=== PATIENT | female | born 1955 | race Hispanic/Latino ===

== ENCOUNTER 2016-08-04 10:44 | Outpatient (CLI) | payer OTHER ==
--- NOTE | 2016-08-05 16:56 | Mammography Report ---
BILATERAL DIGITAL SCREENING MAMMOGRAM with CAD: 08/04/16 10:44:00 CLINICAL: Routine screening.Previous benign biopsy. COMPARISON:11/14/14 FINDINGS: The breasts are almost entirely fatty.Stable left upper outer benign scar. No mass, architectural distortion or suspicious calcifications. IMPRESSION: No mammographic evidence of malignancy. BI-RADS CATEGORY: 2 -- Benign RECOMMENDATION: Routine mammographic screening in one year. COMMENT: Patient follow-up letters are generated by our [email or web address] application.
== END 2016-08-04 10:45 | disposition home or self-care (01) ==
LOC: SPVWC 10:44
PROVIDERS: ATTEND Family Medicine
DX: Z12.31 Encounter for screening mammogram for malignant neoplasm of breast (principal)
CPT/HCPCS: 77067; G0202

== ENCOUNTER 2016-09-23 10:13 | Outpatient (CLI) | payer OTHER ==
--- NOTE | 2016-09-23 14:27 | Ultrasound Report ---
RIGHT UPPER QUADRANT ABDOMINAL ULTRASOUND: 09/23/16 10:13:00 CLINICAL: Right upper quadrant abdominal pain and nausea. FINDINGS: High-resolution ultrasound demonstrated a normal size liver with mild increased echogenicity. No liver mass. Normal hepatic vasculature and inferior vena cava. Normal gallbladder and bile ducts. The gall bladder wall measures 2.0 mm in thickness. The common bile duct measures 4.2 mm diameter. The pancreas was fairly well imaged. The pancreatic head and body are normal. The pancreatic tail is not well imaged due to bowel gas. Normal upper abdominal aorta. The right kidney is normal and measures 10.1 x 3.6 x 3.8cm. No ascites or mass. IMPRESSION: No cholelithiasis. Mild increased liver echogenicity, likely mild hepatic steatosis. Suboptimal imaging of the pancreatic tail. No signs of pancreatitis.
== END 2016-09-23 10:14 | disposition home or self-care (01) ==
LOC: SPVWC 10:13
PROVIDERS: ATTEND Surgery
DX: K59.00 Constipation, unspecified (principal); R11.2 Nausea with vomiting, unspecified
CPT/HCPCS: 76705

== ENCOUNTER 2017-11-01 10:36 | Outpatient (CLI) | payer OTHER ==
--- NOTE | 2017-11-01 16:36 | Mammography Report ---
BILATERAL DIGITAL SCREENING MAMMOGRAM with CAD: 11/01/17 10:36:00 CLINICAL: Routine screening. COMPARISON:08/04/16 and 11/14/14 FINDINGS: The breasts are mostly fatty.The previously identified left upper focal asymmetry consistent with benign scar is less dense and smaller than on the last exam. No mass, suspicious architectural distortion or suspicious calcifications. IMPRESSION: No mammographic evidence of malignancy. BI-RADS CATEGORY: 2 -- Benign RECOMMENDATION: Routine mammographic screening in one year. COMMENT: Patient follow-up letters are generated by our [employer] application.
== END 2017-11-01 10:37 | disposition home or self-care (01) ==
LOC: SPVWC 10:36
PROVIDERS: ATTEND Family Medicine
DX: Z12.31 Encounter for screening mammogram for malignant neoplasm of breast (principal)
CPT/HCPCS: 77067

== ENCOUNTER 2018-11-02 11:30 | Outpatient (CLI) | payer OTHER ==
--- NOTE | 2018-11-02 16:23 | Mammography Report ---
BILATERAL DIGITAL SCREENING MAMMOGRAM with CAD: 11/02/18 11:30:00 CLINICAL: Routine screening.Previous left benign surgical biopsy. COMPARISON:11/01/17 FINDINGS: The breasts are almost entirely fatty.Left upper outer benign surgical scar. No mass, architectural distortion or suspicious calcifications. IMPRESSION: No mammographic evidence of malignancy. BI-RADS CATEGORY: 2 -- Benign RECOMMENDATION: Routine mammographic screening in one year. COMMENT: Patient follow-up letters are generated by our [employer] application.
== END 2018-11-02 11:31 | disposition home or self-care (01) ==
LOC: SPVWC 11:30
PROVIDERS: ATTEND Specialist
DX: Z12.31 Encounter for screening mammogram for malignant neoplasm of breast (principal)
CPT/HCPCS: 77067

== ENCOUNTER 2018-12-06 10:47 | Outpatient (CLI) | payer OTHER ==
--- NOTE | 2018-12-06 11:28 | XRay Report ---
KUB: 12/06/18 CLINICAL: Abdominal pain. FINDINGS: Large mid-abdominal mesh graft. Normal bowel gas pattern. No distended bowel and no air-fluid levels. Phleboliths in the pelvis. No mass or suspicious calcifications. Degenerative change in the lower lumbar spine. IMPRESSION: Negative abdomen.
== END 2018-12-06 10:48 | disposition home or self-care (01) ==
LOC: SPVIMAG 10:47
PROVIDERS: ATTEND Family Medicine
DX: I87.8 Other specified disorders of veins (principal)
CPT/HCPCS: 74018